=== PATIENT | male | born 1940 | race Caucasian/White ===

== ENCOUNTER → 2021-03-12 13:00 | Outpatient (CLI) | payer MEDICARE, SELFPAY ==
--- NOTE | 2021-03-12 13:03 | DI.RAD.S_ITS ---
PROCEDURE: XR FOOT RT MIN 3V INDICATIONS: Clinical concern for osteo myelitis of distal 1st metarsal, MCP TECHNIQUE: 3 views of the foot were acquired. COMPARISON: [facility], XR FOOT 3+ VIEWS RIGHT, 05/14/2020, 11:05. FINDINGS: Bones: Moderate to prominent hallux valgus deformity is seen, with associated focal degenerative change of the 1st metatarsophalangeal joint. Milder degenerative changes are seen elsewhere. Toe alignment abnormalities are seen. A plantar calcaneal spur is seen. No displaced fractures are seen. Soft tissues: Soft tissue irregularity and soft tissue gas can be seen adjacent to the 1st metatarsophalangeal joint. Distal soft tissue swelling is seen. Calcification is noted of the distal arteries. This degree of calcification is typically seen in patients with a long-standing history of diabetes. Please correlate with a history of such. IMPRESSION: Soft tissue swelling and soft tissue gas can be seen adjacent to the 1st metatarsophalangeal joint, without bella plain film findings of osteomyelitis. If there is strong suspicion for developing osteomyelitis, please consider a dedicated MRI without and with contrast for further evaluation (assuming that there is no contraindication to MRI). Moderate to prominent hallux valgus deformity, with associated degenerative changes. Dictated by: Federico Javier M.D. on 03/12/2021 at 12:24 Approved by: Federico Javier M.D. on 03/12/2021 at 12:26
== END ==
PROVIDERS: Referring Provider Nurse Practitioner; Visit Provider Nurse Practitioner
DX: S91.301A Unspecified open wound, right foot, initial encounter (principal); M79.89 Other specified soft tissue disorders; M20.11 Hallux valgus (acquired), right foot; M77.31 Calcaneal spur, right foot
CPT/HCPCS: 73630; 87070; 87077; 87147; 87186; 87205

== ENCOUNTER → 2021-03-12 13:14 | Outpatient (CLI) | payer MEDICARE, SELFPAY | PROVIDERS: Visit Provider Nurse Practitioner | DX: S91.309A Unspecified open wound, unspecified foot, initial encounter (principal) | CPT/HCPCS: 87070; 87147; 87205 ==

== ENCOUNTER → 2021-03-23 13:33 | Outpatient (CLI) | payer MEDICARE, SELFPAY | PROVIDERS: PCP Nurse Practitioner; Referring Provider Nurse Practitioner; Visit Provider Family Medicine | DX: E11.621 Type 2 diabetes mellitus with foot ulcer (principal); L97.511 Non-pressure chronic ulcer of other part of right foot limited to breakdown of skin; L08.9 Local infection of the skin and subcutaneous tissue, unspecified; M21.611 Bunion of right foot | CPT/HCPCS: 87070; 87075; 87205 ==

== ENCOUNTER → 2021-03-23 15:01 | Outpatient (CLI) | payer MEDICARE, SELFPAY | PROVIDERS: PCP Nurse Practitioner; Referring Provider Podiatrist; Visit Provider Family Medicine | DX: E11.621 Type 2 diabetes mellitus with foot ulcer (principal); L97.511 Non-pressure chronic ulcer of other part of right foot limited to breakdown of skin; L08.9 Local infection of the skin and subcutaneous tissue, unspecified; M21.611 Bunion of right foot | CPT/HCPCS: 11042; 99204; 99214 ==

== ENCOUNTER → 2021-03-30 12:53 | Outpatient (CLI) | payer MEDICARE, SELFPAY | PROVIDERS: PCP Nurse Practitioner; Referring Provider Nurse Practitioner; Visit Provider Family Medicine | DX: E11.621 Type 2 diabetes mellitus with foot ulcer (principal); L97.511 Non-pressure chronic ulcer of other part of right foot limited to breakdown of skin; L08.9 Local infection of the skin and subcutaneous tissue, unspecified; M21.611 Bunion of right foot; S51.001A Unspecified open wound of right elbow, initial encounter | CPT/HCPCS: 87070; 87075; 87205; 97597; 99214 ==

== ENCOUNTER → 2021-04-06 14:26 | Outpatient (CLI) | payer MEDICARE, SELFPAY | PROVIDERS: PCP Nurse Practitioner; Referring Provider Nurse Practitioner; Visit Provider Family Medicine | DX: E11.621 Type 2 diabetes mellitus with foot ulcer (principal); L97.511 Non-pressure chronic ulcer of other part of right foot limited to breakdown of skin; L08.9 Local infection of the skin and subcutaneous tissue, unspecified; S51.001A Unspecified open wound of right elbow, initial encounter; M21.611 Bunion of right foot | CPT/HCPCS: 87070; 87075; 87077; 87147; 87205; 97597; 99213 ==

== ENCOUNTER → 2021-04-13 14:04 | Outpatient (CLI) | payer MEDICARE, SELFPAY | PROVIDERS: PCP Nurse Practitioner; Referring Provider Nurse Practitioner; Visit Provider Family Medicine | DX: E11.621 Type 2 diabetes mellitus with foot ulcer (principal); L97.511 Non-pressure chronic ulcer of other part of right foot limited to breakdown of skin; L08.9 Local infection of the skin and subcutaneous tissue, unspecified; S51.001A Unspecified open wound of right elbow, initial encounter; B95.7 Other staphylococcus as the cause of diseases classified elsewhere; M21.611 Bunion of right foot; L84 Corns and callosities | CPT/HCPCS: 36415; 80048; 85025; 85651; 86140; 97597; 99213 ==

== ENCOUNTER → 2021-04-13 15:34 | Outpatient (CLI) | payer MEDICARE, SELFPAY ==
[2021-04-13 16:08] LABS: Add Manual Diff / Slide Review NO; Basophils Absolute Auto 100 /uL (0-100); Basophils Percent Auto 1.4 % (0-2); Eosinophils Absolute Auto 200 /uL (0-450); Hematocrit 28.4 % (41-53); Hemoglobin 9.6 g/dL (13.5-17.5); Lymphocytes Absolute Auto 900 /uL (1100-4500); Lymphocytes Percent Auto 19.4 % (25-40); Mean Corpuscular HGB Conc 33.8 % (30-36); Mean Corpuscular Hemoglobin 33.3 PG (26-34); Mean Corpuscular Volume 98.8 fL (80-100); Monocytes Absolute Auto 600 /uL (0-900); Monocytes Percent Auto 12.7 % (3-14); Neutrophils Absolute Auto 2900 /uL (1500-7000); Neutrophils Percent Auto 61.5 % (50-75); Platelet Count 119 X10^3/uL (150-400); Red Blood Cell Count 2.88 X10^6/uL (4.5-5.9); Red Cell Distribution Width 14.3 % (11.6-14.8); White Blood Cell Count 4.7 X10^3/uL (4.5-11.0)
[2021-04-13 16:59] LABS: Erythrocyte Sedimentation Rate 62 MM/HR (0-15)
[2021-04-13 17:04] LABS: BUN Creatinine Ratio 36.9 (6-22); Blood Urea Nitrogen 93 mg/dL (9-20); C-Reactive Protein Quant 0.5 mg/dL (<1.0); Carbon Dioxide 31 mmol/L (22-32); Chloride 94 mmol/L (98-107); Estimated Glomerular Filt Rate 24.6 mL/min (>60); Glucose 95 mg/dL (80-110); HEMOLYSIS < 15 (0-50); Potassium 3.6 mmol/L (3.4-5.1); Sodium 137 mmol/L (137-145)
== END ==
PROVIDERS: PCP Nurse Practitioner; Referring Provider Family Medicine; Visit Provider Family Medicine
DX: E11.621 Type 2 diabetes mellitus with foot ulcer (principal); L97.511 Non-pressure chronic ulcer of other part of right foot limited to breakdown of skin; L08.9 Local infection of the skin and subcutaneous tissue, unspecified
CPT/HCPCS: 36415; 80048; 85025; 85651; 86140

== ENCOUNTER → 2021-04-27 14:35 | Outpatient (CLI) | payer MEDICARE, SELFPAY | PROVIDERS: PCP Nurse Practitioner; Referring Provider Nurse Practitioner; Visit Provider Family Medicine | DX: E11.621 Type 2 diabetes mellitus with foot ulcer (principal); L97.511 Non-pressure chronic ulcer of other part of right foot limited to breakdown of skin; M21.611 Bunion of right foot; S51.002A Unspecified open wound of left elbow, initial encounter; D64.9 Anemia, unspecified; D69.6 Thrombocytopenia, unspecified; N18.4 Chronic kidney disease, stage 4 (severe); I50.32 Chronic diastolic (congestive) heart failure | CPT/HCPCS: 97597; 99214 ==

== ENCOUNTER → 2021-05-03 13:12 | Outpatient (CLI) | payer MEDICARE, SELFPAY | PROVIDERS: PCP Nurse Practitioner; Referring Provider Nurse Practitioner; Visit Provider Family Medicine | DX: E11.621 Type 2 diabetes mellitus with foot ulcer (principal); L97.511 Non-pressure chronic ulcer of other part of right foot limited to breakdown of skin; M21.611 Bunion of right foot; S51.002A Unspecified open wound of left elbow, initial encounter; D64.9 Anemia, unspecified; D69.6 Thrombocytopenia, unspecified; N18.4 Chronic kidney disease, stage 4 (severe); I50.32 Chronic diastolic (congestive) heart failure; L08.9 Local infection of the skin and subcutaneous tissue, unspecified; S93.124A Dislocation of metatarsophalangeal joint of right lesser toe(s), initial encounter | CPT/HCPCS: 73630; 87070; 87075; 87205; 97597; 99213 ==

== ENCOUNTER → 2021-05-03 14:49 | Outpatient (CLI) | payer MEDICARE, SELFPAY ==
--- NOTE | 2021-05-03 14:53 | DI.RAD.S_ITS ---
PROCEDURE: XR FOOT RT MIN 3V INDICATIONS: Evaluate for osteomyelitis-rt 1st met head TECHNIQUE: 3 views of the foot were acquired. COMPARISON: [facility] [place], CR, XR FOOT 3+ VIEWS RIGHT, 05/14/2020, 11:05. [facility], CR, XR FOOT RT MIN 3V, 03/12/2021, 13:02. FINDINGS: Bones: No acute fracture. There is bony lucency along the medial margin of the 1st metatarsal head. There is severe hallux valgus alignment and medial bunion. Dorsal dislocation of the 2nd MTP joint. Background osteoarthritic changes redemonstrated. Prominent plantar calcaneal enthesophyte. Soft tissues: No tibiotalar joint effusion. Achilles tendon appears normal. Vascular calcifications indicate atherosclerosis. IMPRESSION: 1. Bony lucency along the medial margin of the 1st metatarsal head which could represent developing osteomyelitis. Recommend clinical correlation and attention on follow-up. 2. Dislocation of the 2nd MTP joint. 3. Diffuse degenerative change again noted. Dictated by: Salvador Day [facility] Interpreted: Mo Wan MD on 05/03/2021 at 15:39 Transcribed by: PATTI on 05/03/2021 at 15:42 Approved by: Mo Wan M.D. on 05/03/2021 at 16:47
== END ==
PROVIDERS: PCP Nurse Practitioner; Referring Provider Family Medicine; Visit Provider Family Medicine
DX: E11.621 Type 2 diabetes mellitus with foot ulcer (principal); S93.124A Dislocation of metatarsophalangeal joint of right lesser toe(s), initial encounter; L97.511 Non-pressure chronic ulcer of other part of right foot limited to breakdown of skin
CPT/HCPCS: 73630

== ENCOUNTER → 2021-05-11 14:44 | Outpatient (CLI) | payer MEDICARE, SELFPAY | PROVIDERS: PCP Nurse Practitioner; Referring Provider Nurse Practitioner; Visit Provider Family Medicine | DX: E11.621 Type 2 diabetes mellitus with foot ulcer (principal); L97.512 Non-pressure chronic ulcer of other part of right foot with fat layer exposed; M21.611 Bunion of right foot; S51.002A Unspecified open wound of left elbow, initial encounter; D64.9 Anemia, unspecified; N18.4 Chronic kidney disease, stage 4 (severe); I50.32 Chronic diastolic (congestive) heart failure; L03.115 Cellulitis of right lower limb; L97.511 Non-pressure chronic ulcer of other part of right foot limited to breakdown of skin | CPT/HCPCS: 36415; 80053; 83036; 84134; 85025; 85651; 86140; 87070; 87075; 87077; 87147; 87186; 87205; 99214; 99215 ==

== ENCOUNTER → 2021-05-11 14:59 | Outpatient (CLI) | payer MEDICARE, SELFPAY ==
[2021-05-11 16:00] LABS: Add Manual Diff / Slide Review NO; Basophils Absolute Auto 100 /uL (0-100); Basophils Percent Auto 0.9 % (0-2); Eosinophils Absolute Auto 200 /uL (0-450); Eosinophils Percent Auto 3.9 % (2-4); Hematocrit 22.5 % (41-53); Hemoglobin 7.6 g/dL (13.5-17.5); Lymphocytes Absolute Auto 700 /uL (1100-4500); Mean Corpuscular HGB Conc 33.6 % (30-36); Mean Corpuscular Hemoglobin 33.4 PG (26-34); Mean Corpuscular Volume 99.4 fL (80-100); Monocytes Absolute Auto 600 /uL (0-900); Monocytes Percent Auto 10.5 % (3-14); Neutrophils Absolute Auto 4400 /uL (1500-7000); Neutrophils Percent Auto 73.7 % (50-75); Platelet Count 183 X10^3/uL (150-400); Red Blood Cell Count 2.27 X10^6/uL (4.5-5.9); Red Cell Distribution Width 15.1 % (11.6-14.8)
[2021-05-11 16:10] LABS: Hemoglobin A1C% w Est Avg Glu 6.1 % (4.0-6.0)
[2021-05-11 16:33] LABS: Erythrocyte Sedimentation Rate 42 MM/HR (0-15)
[2021-05-11 16:58] LABS: Alanine Aminotransferase 21 IU/L (<50); Albumin 3.9 g/dL (3.5-5.0); Albumin Globulin Ratio 1.3 (1.0-2.8); Alkaline Phosphatase 126 U/L (38-126); Aspartate Aminotransferase 37 IU/L (17-59); BUN Creatinine Ratio 30.1 (6-22); Bilirubin Total 0.8 mg/dL (0.2-1.3); Blood Urea Nitrogen 86 mg/dL (9-20); Calcium 8.8 mg/dL (8.4-10.2); Carbon Dioxide 26 mmol/L (22-32); Chloride 100 mmol/L (98-107); Estimated Glomerular Filt Rate 21.3 mL/min (>60); Glucose 72 mg/dL (80-110); HEMOLYSIS < 15 (0-50); Potassium 4.4 mmol/L (3.4-5.1); Sodium 138 mmol/L (137-145); Total Protein 6.9 g/dL (6.3-8.2)
[2021-05-11 17:03] LABS: Prealbumin 20.1 mg/dL (17.6-36.0)
== END ==
PROVIDERS: PCP Nurse Practitioner; Referring Provider Family Medicine; Visit Provider Family Medicine
DX: E11.621 Type 2 diabetes mellitus with foot ulcer (principal); L97.511 Non-pressure chronic ulcer of other part of right foot limited to breakdown of skin
CPT/HCPCS: 36415; 80053; 83036; 84134; 85025; 85651; 86140

== ENCOUNTER → 2021-05-19 13:06 | Outpatient (CLI) | payer MEDICARE, SELFPAY | PROVIDERS: PCP Nurse Practitioner; Referring Provider Nurse Practitioner; Visit Provider Family Medicine | DX: E11.621 Type 2 diabetes mellitus with foot ulcer (principal); L97.512 Non-pressure chronic ulcer of other part of right foot with fat layer exposed; M21.611 Bunion of right foot; D64.9 Anemia, unspecified; N18.4 Chronic kidney disease, stage 4 (severe); I50.32 Chronic diastolic (congestive) heart failure; B95.61 Methicillin susceptible Staphylococcus aureus infection as the cause of diseases classified elsewhere | CPT/HCPCS: 15275; 99214; Q4195 ==

== ENCOUNTER → 2021-05-24 13:49 | Outpatient (CLI) | payer MEDICARE, SELFPAY | PROVIDERS: PCP Nurse Practitioner; Referring Provider Nurse Practitioner; Visit Provider Family Medicine | DX: E11.621 Type 2 diabetes mellitus with foot ulcer (principal); L97.522 Non-pressure chronic ulcer of other part of left foot with fat layer exposed; E11.40 Type 2 diabetes mellitus with diabetic neuropathy, unspecified; L08.9 Local infection of the skin and subcutaneous tissue, unspecified; S93.124D Dislocation of metatarsophalangeal joint of right lesser toe(s), subsequent encounter; M20.11 Hallux valgus (acquired), right foot; M20.5X1 Other deformities of toe(s) (acquired), right foot; M19.071 Primary osteoarthritis, right ankle and foot; M77.31 Calcaneal spur, right foot | CPT/HCPCS: 73630; 99214 ==

== ENCOUNTER → 2021-05-24 15:22 | Outpatient (CLI) | payer MEDICARE, SELFPAY ==
--- NOTE | 2021-05-24 15:26 | DI.RAD.S_ITS ---
PROCEDURE: XR FOOT RT MIN 3V INDICATIONS: EVALUATE RT 1ST MTPJ TECHNIQUE: 3 views of the foot were acquired. COMPARISON: [facility], , XR FOOT RT MIN 3V, 05/03/2021, 14:55. FINDINGS: Bones: Lucency involving the medial margin of the 1st metatarsal head is stable compared to May 03, 2021. Dorsal dislocation of the 2nd MTP joint is stable. Hallux valgus and metatarsus primus varus deformities are stable. No fractures or dislocations. No suspicious bony lesions. Midfoot and tibiotalar osteoarthritis. Calcaneal bone spur. Soft tissues: No tibiotalar joint effusion. Achilles tendon appears normal. IMPRESSION: Stable examination compared to May 03, 2021. Lucency in the medial margin of the head of the 1st metatarsal is stable in appearance. Dictated by: Juanita Germain MD, PhD on 05/24/2021 at 16:51 Approved by: Juanita Germain MD, PhD on 05/24/2021 at 16:53
== END ==
PROVIDERS: PCP Family Medicine; Referring Provider Family Medicine; Visit Provider Family Medicine
DX: E11.621 Type 2 diabetes mellitus with foot ulcer (principal); S93.124D Dislocation of metatarsophalangeal joint of right lesser toe(s), subsequent encounter; M20.11 Hallux valgus (acquired), right foot; M20.5X1 Other deformities of toe(s) (acquired), right foot; M19.071 Primary osteoarthritis, right ankle and foot; M77.31 Calcaneal spur, right foot
CPT/HCPCS: 73630

== ENCOUNTER → 2021-06-07 13:45 | Outpatient (CLI) | payer MEDICARE, SELFPAY | PROVIDERS: PCP Family Medicine; Referring Provider Family Medicine; Visit Provider Family Medicine | DX: N18.4 Chronic kidney disease, stage 4 (severe) (principal); E11.621 Type 2 diabetes mellitus with foot ulcer; L97.512 Non-pressure chronic ulcer of other part of right foot with fat layer exposed; M21.611 Bunion of right foot; D64.9 Anemia, unspecified; I50.32 Chronic diastolic (congestive) heart failure; L08.9 Local infection of the skin and subcutaneous tissue, unspecified; R94.4 Abnormal results of kidney function studies; E11.40 Type 2 diabetes mellitus with diabetic neuropathy, unspecified | CPT/HCPCS: 36415; 80053; 85025; 85651; 86140; 99214 ==

== ENCOUNTER → 2021-06-07 14:59 | Outpatient (CLI) | payer MEDICARE, SELFPAY ==
[2021-06-07 15:39] LABS: Add Manual Diff / Slide Review NO; Basophils Absolute Auto 100 /uL (0-100); Eosinophils Absolute Auto 200 /uL (0-450); Eosinophils Percent Auto 3.3 % (2-4); Hematocrit 25.8 % (41-53); Hemoglobin 8.6 g/dL (13.5-17.5); Lymphocytes Absolute Auto 1000 /uL (1100-4500); Lymphocytes Percent Auto 18.6 % (25-40); Mean Corpuscular HGB Conc 33.5 % (30-36); Mean Corpuscular Hemoglobin 33.3 PG (26-34); Mean Corpuscular Volume 99.4 fL (80-100); Monocytes Absolute Auto 700 /uL (0-900); Monocytes Percent Auto 13.5 % (3-14); Neutrophils Absolute Auto 3500 /uL (1500-7000); Neutrophils Percent Auto 63.6 % (50-75); Platelet Count 129 X10^3/uL (150-400); Red Cell Distribution Width 14.8 % (11.6-14.8); White Blood Cell Count 5.5 X10^3/uL (4.5-11.0)
[2021-06-07 16:18] LABS: Erythrocyte Sedimentation Rate 81 MM/HR (0-15)
[2021-06-07 16:22] LABS: Alanine Aminotransferase 22 IU/L (<50); Albumin 4.4 g/dL (3.5-5.0); Albumin Globulin Ratio 1.2 (1.0-2.8); Alkaline Phosphatase 95 U/L (38-126); Aspartate Aminotransferase 45 IU/L (17-59); BUN Creatinine Ratio 37.7 (6-22); Bilirubin Total 1.1 mg/dL (0.2-1.3); C-Reactive Protein Quant < 0.5 mg/dL (<1.0); Calcium 9.9 mg/dL (8.4-10.2); Carbon Dioxide 31 mmol/L (22-32); Chloride 101 mmol/L (98-107); Estimated Glomerular Filt Rate 21.4 mL/min (>60); Globulin 3.7 g/dL (1.7-4.1); Glucose 63 mg/dL (80-110); HEMOLYSIS < 15 (0-50); Sodium 142 mmol/L (137-145); Total Protein 8.1 g/dL (6.3-8.2)
[2021-06-07 18:41] LABS: Blood Urea Nitrogen 107 mg/dL (9-20)
== END ==
PROVIDERS: PCP Family Medicine; Referring Provider Family Medicine; Visit Provider Family Medicine
DX: N18.4 Chronic kidney disease, stage 4 (severe) (principal); E11.621 Type 2 diabetes mellitus with foot ulcer
CPT/HCPCS: 36415; 80053; 85025; 85651; 86140

== ENCOUNTER 2021-06-13 14:07 | Emergency (ER) | payer MEDICARE, SELFPAY ==
[2021-06-13 14:13] VITALS: BP 180/93; PULSE 79; RESP 18; TEMP 36.4; O2SAT 100
--- NOTE | 2021-06-13 15:08 | DI.CT.S_ITS ---
PROCEDURE: CT HEAD/BRAIN WO CON INDICATIONS: head injury, fell in parking lot TECHNIQUE: Noncontrast 4.5 mm thick angled axial sections acquired from the foramen magnum to the vertex, with coronal and sagittal reformats. For radiation dose reduction, the following was used: automated exposure control, adjustment of mA and/or kV according to patient size. COMPARISON: None. FINDINGS: Image quality: Excellent. CSF spaces: Basal cisterns are patent. No extra-axial fluid collections. Ventricles are normal in size and shape. Brain: No midline shift. No intracranial masses or hemorrhage. Berg-white matter interface is normal. Skull and face: Calvarium and visualized facial bones are intact, without suspicious lesions. Sinuses: Visualized sinuses and mastoids are clear. IMPRESSION: No acute intracranial finding. Dictated by: Krish León M.D. on 06/13/2021 at 14:27 Approved by: Krish León M.D. on 06/13/2021 at 14:33
--- NOTE | 2021-06-13 15:11 | ED_ITS ---
HPI - Fall <AVANI Escobedo - Last Filed: 06/13/21 16:04> General Chief Complaint: Fall Stated Complaint: Fall in parking lot Time Seen by Provider: 06/13/21 15:08 Source: patient and other Mode of arrival: Ambulatory History of Present Illness HPI Narrative: 80-year-old man presents to the emergency department after tripping on some raised asphalt in the parking lot. Patient has abrasions above his right eye, bilateral hands, right cheek, right knee. Patient denies any LOC, nausea vomiting, shortness of breath, chest pain, syncope, dizziness, lightheadedness. He endorses right lower extremity swelling at baseline for a wound that is on his foot. He was going to get some lunch while his went to an MRI appointment, so he endorses being hungry because he did not make it that far. Patient is fully alert, GCS is 15, he was assisted to the emergency department just after his fall. Related Data Previous Rx's Medication Instructions Recorded gentamicin 0.1 % topical ointment 1 applic TOPICAL TID PRN 7 Days 06/13/21 #15 g Allergies Allergy/AdvReac Type Severity Reaction Status Date / Time amlodipine [From Norvasc] Allergy Severe edema Verified 06/13/21 15:51 minoxidil Allergy Severe severe Verified 06/13/21 15:51 edema nifedipine Allergy Intermediate edema Verified 06/13/21 15:51 aliskiren [From Tekturna] AdvReac Intermediate diarrhea Verified 06/13/21 15:51 doxycycline AdvReac Intermediate sunburn Verified 06/13/21 15:51 Review of Systems <AVANI Escobedo - Last Filed: 06/13/21 16:04> Review of Systems Narrative: General: denies fever, chills Head/Neck: denies headache, neck pain Eyes: denies visual changes, eye pain Cardio: denies chest pain, palpitations Respiratory: denies shortness of breath, cough GI: denies abdominal pain, nausea, vomiting, or diarrhea : denies dysuria, hematuria MSK: denies joint pain, muscle weakness, denies back pain Skin: denies rash, itching, patient has multiple abrasions which are breathing lately Neuro: denies numbness, tingling Patient History <AVANI Escobedo - Last Filed: 06/13/21 16:04> Social History Smoking Status: Former smoker Smoking Status: Former smoker Exam <AVANI Escobedo - Last Filed: 06/13/21 16:04> Narrative Exam Narrative: Independently reviewed vitals signs and nursing notes. General: Awake, alert, nontoxic, no cardiorespiratory distress Head/Neck: Atraumatic, neck full range of motion Eyes: EOMI, conjunctiva normal, no pain with eye movements, no scleral injection Nose: nares patent, no rhinorrhea no epistaxis Mouth/Throat: moist mucus membranes, posterior pharynx normal, no oral lesions Cardio: Regular rate and rhythm, no peripheral edema Respiratory: respirations unlabored without wheezing, stridor, or rales. No retractions. GI: Abdomen soft, nontender MSK: Moves all extremities, neurovascularly intact, no deformities, full range of motion to all joints without significant pain Skin: Normal capillary refill, no rash, patient with to inch by 1 in abrasion above his right eyebrow, bilateral palmar abrasions, right knee abrasion, no lacerations, contusions present without hematoma Neuro: Normal speech and cognition, normal gait, no focal neuro deficits, GCS is 15, cranial nerves 2-12 grossly intact Patient denies need for pain medication at this time Initial Vital Signs Initial Vital Signs: Vital Signs Temperature 97.5 F L 06/13/21 14:13 Pulse Rate 79 06/13/21 14:13 Respiratory Rate 18 06/13/21 14:13 Blood Pressure 180/93 H 06/13/21 14:13 Pulse Oximetry 100 06/13/21 14:13 <Sejal Rob DO - Last Filed: 06/16/21 13:15> Initial Vital Signs Initial Vital Signs: Vital Signs Temperature 97.5 F L 06/13/21 14:13 Pulse Rate 79 06/13/21 14:13 Respiratory Rate 18 06/13/21 14:13 Blood Pressure 180/93 H 06/13/21 14:13 Pulse Oximetry 100 06/13/21 14:13 Scores <AVANI Escobedo - Last Filed: 06/13/21 16:04> [place] CT Head Rule Age <16 years old: No Patient on blood thinners: No Seizure after injury: No Exclusion: Patient NOT Excluded, Proceed to next steps Suspected open or depressed skull fracture: No Any sign of basilar skull fracture (hemotympanum, raccoon eyes, Ambrosio's sign, CSF jackie-/rhinorrhea): No Two or more episodes of vomiting: No Age greater or equal to 65 years: Yes Retrograde amnesia to the event greater or equal to 30 min: No Dangerous Mechanism (pedestrian vs. mv, occupant ejected from mv, fall from >3 ft or > 5 stairs): No Nexus Score for C-Spine Focal Neurologic deficit present: No Midline spinal tenderness present: No Altered level of conciousness present: No Intoxication present: No Distracting Injury Present: No Nexus Criteria for C-spine: 0 <Sejal Rob DO - Last Filed: 06/16/21 13:15> [place] CT Head Rule Exclusion: Patient NOT Excluded, Proceed to next steps Nexus Score for C-Spine Nexus Criteria for C-spine: 0 Course <AVANI Escobedo - Last Filed: 06/13/21 16:04> Orders Ordered: Discontinued Medications Acetaminophen (Acetaminophen 325 Mg Tablet) 975 mg PO NOW ONE Stop: 06/13/21 15:35 Last Admin: 06/13/21 15:50 Dose: 975 mg Documented by: SHAJI Bacitracin (Bacitracin Oint 0.9 Gm Pckt) 1 applic TOP NOW ONE Stop: 06/13/21 15:52 Last Admin: 06/13/21 15:59 Dose: 1 applic Documented by: SHAJI Gentamicin Sulfate (Gentamicin 0.1% Oint 30 Gm) 1 applic TOP NOW ONE Stop: 06/13/21 15:52 Last Admin: 06/13/21 16:00 Dose: Not Given Documented by: SHAJI Lidocaine/Prilocaine (Lidocaine/Prilocaine 5 Gm) 5 gm TOP NOW ONE Stop: 06/13/21 15:11 Last Admin: 06/13/21 16:00 Dose: Not Given Documented by: SHAJI Vital Signs Vital signs: Vital Signs - 8 hr 06/13/21 14:13 Temperature 97.5 F L Pulse Rate 79 Respiratory Rate 18 Blood Pressure 180/93 H Pulse Oximetry 100 <DO Paco Griggs Last Filed: 06/16/21 13:15> Orders Ordered: Discontinued Medications Acetaminophen (Acetaminophen 325 Mg Tablet) 975 mg PO NOW ONE Stop: 06/13/21 15:35 Last Admin: 06/13/21 15:50 Dose: 975 mg Documented by: SHAJI Bacitracin (Bacitracin Oint 0.9 Gm Pckt) 1 applic TOP NOW ONE Stop: 06/13/21 15:52 Last Admin: 06/13/21 15:59 Dose: 1 applic Documented by: SHAIJ Gentamicin Sulfate (Gentamicin 0.1% Oint 30 Gm) 1 applic TOP NOW ONE Stop: 06/13/21 15:52 Last Admin: 06/13/21 16:00 Dose: Not Given Documented by: SHAJI Lidocaine/Prilocaine (Lidocaine/Prilocaine 5 Gm) 5 gm TOP NOW ONE Stop: 06/13/21 15:11 Last Admin: 06/13/21 16:00 Dose: Not Given Documented by: SHAJI Vital Signs Vital signs: Vital Signs - 8 hr 06/13/21 14:13 Temperature 97.5 F L Pulse Rate 79 Respiratory Rate 18 Blood Pressure 180/93 H Pulse Oximetry 100 MDM - Fall <AVANI Escobedo - Last Filed: 06/13/21 16:04> Imaging Data CT scan - head: Radiologist's Impression: Procedure: CT head/brain wo con Ordering Provider: Della Ruiz PROCEDURE:? CT HEAD/BRAIN WO CON ? INDICATIONS:? head injury, fell in parking lot ? TECHNIQUE:? Noncontrast 4.5 mm thick angled axial sections acquired from the foramen magnum to the vertex, with coronal and sagittal reformats.? For radiation dose reduction, the following was used:? automated exposure control, adjustment of mA and/or kV according to patient size.? ? COMPARISON:? None. ? FINDINGS:? Image quality:? Excellent.? ? CSF spaces:? Basal cisterns are patent.? No extra-axial fluid collections.? Ventricles are normal in size and shape.? ? Brain:? No midline shift.? No intracranial masses or hemorrhage.? Berg-white matter interface is normal.? ? Skull and face:? Calvarium and visualized facial bones are intact, without suspicious lesions.? ? Sinuses:? Visualized sinuses and mastoids are clear.? ? IMPRESSION:? No acute intracranial finding. ? ? Dictated by: Krish León M.D. on 06/13/2021 at 14:27 ? ? Approved by: Krish León M.D. on 06/13/2021 at 14:33 ? [facility] Narrative Medical decision making narrative: 80-year-old male presents to the emergency department after falling in the parking lot tripping on asphalt and injuring his right face, palmar aspects of bilateral hands. Patient's exam is reassuring, no focal neurologic deficits, no C-spine tenderness to palpation, no palpable skull fracture or significant tenderness, CT noncontrast obtained due to patient age, and mechanism although patient denied any vision changes, lightheadedness or dizziness, syncope, nausea vomiting. Head CT without any intracranial masses or hemorrhage, no midline shift, visualized sinuses and mastoids are clear, without any acute intracranial finding. Patient's exam is reassuring without any mental status changes, abnormal speech, or other. I spoke with digital imaging who was to complete part 1 of 2 scans today, patient missed his appointment time due to his fall. Patient requests to follow-up later as these are easy to reschedule, this was fine with the apartment. I spoke with Marilu, patient's wound clinic provider who recommends gentamicin ointment to patient's skin tears and multiple abrasions. Today these were cleaned by the medical technologist, bacitracin was applied in the emergency department with nonstick dressings, he was prescribed gentamicin ointment to chart picker tomorrow and use until his wounds heal. She will follow-up with him at his scheduled appointment on , and we will call him before then to see how he is doing. Differential includes Subarachnoid hemorrhage, but unlikely as patient denies sudden onset of pain, not worst of life, or neck pain. Other serious diagnoses considered unlikely given lack of red flag findings such as sudden onset, increasing frequency, immunocompromise, systemic signs (fever, chills, stiff neck, or rash), focal neurologic findings, blood thinners, etc. Patient is appropriate and amenable to discharge home. Vital signs are stable on repeat examination is unremarkable. Patient has been informed of results. Patient has been given strict return to ER precautions for any new or worsening symptoms. Patient understands to follow up closely with outpatient providers as instructed. Patient understands plan and agrees to discharge home. All questio ns and concerns answered at this time. Discharge Plan Departure Patient Disposition: Home Clinical Impression: Fall from ground level, Abrasion head, Skin tear of elbow without complication Instructions: How to Prevent Falls Activity Restrictions/Additional Instructions: *You have been diagnosed with a fall with multiple abrasions. Please change your dressings as often as necessary, or when they are saturated. Please change them at least once a day, you may use Band-Aids. Please chart picker gentamicin ointment from your pharmacy at [facility], use this for your skin tears and for the open areas to help prevent infection. If you have any questions about your wounds, Marilu said she would be happy to help. Please return to the emergency department if you have any new or worsening symptoms, chest pain, nausea vomiting, or vision changes. I am sorry that this happened, I hope you feel better soon, please be careful. *What to do: *Please continue to take your regular medications as directed. [ x] New medication prescriptions sent to your pharmacy: [[facility] ] [ ] New medication written as a paper prescription [ ] No new medications given *Please follow up with your primary care provider in 2-3 days, call for an appointment. Let them know you were seen in the Emergency Department and that we ask that you be seen in follow up. We will electronically transmit a record of today's note if your PCP is in our system *If you do not have a primary care provider please contact the [facility] Resource line at [phone]. They will ask some questions about your medical history and help get you set up with a doctor in the community. *Return to Emergency Department if you should have any new, worsening or concerning symptoms, such as [fever greater than 101F, chills, worsening pain, persistent vomiting or other bothersome symptoms] Prescriptions: New gentamicin 0.1 % ointment 1 applic topical TID PRN (Reason: skin tear, abrasions) 7 Days Qty: 15 0RF Referrals: Gabriel Reyes MD [Primary Care Provider] - <Sejal Rob DO - Last Filed: 06/16/21 13:15> Cosign ED Attending Mehdiature Attestation: I was immediately available in the department for consultation. Documentation has been reviewed.
[2021-06-13] MEDS: ACETAMINOPHEN 325 MG TABLET 975 MG PO (15:50)
[2021-06-13] MEDS: BACITRACIN OINT 0.9 GM PCKT 1 APPLIC TOP (15:59)
[2021-06-13 16:13] VITALS: BP 180/80; PULSE 80; RESP 16; O2SAT 99
== END 2021-06-13 16:14 | disposition home or self-care (01) ==
PROVIDERS: Emergency Provider Nurse Practitioner Critical Care Medicine; PCP Family Medicine
DX: S00.81XA Abrasion of other part of head, initial encounter (principal); S60.512A Abrasion of left hand, initial encounter; S60.511A Abrasion of right hand, initial encounter; S80.211A Abrasion, right knee, initial encounter; S50.319A Abrasion of unspecified elbow, initial encounter; W01.10XA Fall on same level from slipping, tripping and stumbling with subsequent striking against unspecified object, initial encounter
CPT/HCPCS: 70450; 99284

== ENCOUNTER → 2021-06-21 16:10 | Outpatient (CLI) | payer MEDICARE, SELFPAY | PROVIDERS: PCP Family Medicine; Referring Provider Family Medicine; Visit Provider Family Medicine | DX: E11.621 Type 2 diabetes mellitus with foot ulcer (principal); L97.512 Non-pressure chronic ulcer of other part of right foot with fat layer exposed; L08.9 Local infection of the skin and subcutaneous tissue, unspecified; M21.611 Bunion of right foot; R26.89 Other abnormalities of gait and mobility; E11.40 Type 2 diabetes mellitus with diabetic neuropathy, unspecified; E11.22 Type 2 diabetes mellitus with diabetic chronic kidney disease; I12.9 Hypertensive chronic kidney disease with stage 1 through stage 4 chronic kidney disease, or unspecified chronic kidney disease; N18.4 Chronic kidney disease, stage 4 (severe); D64.9 Anemia, unspecified; I50.32 Chronic diastolic (congestive) heart failure; I48.91 Unspecified atrial fibrillation; Z95.0 Presence of cardiac pacemaker; Z79.4 Long term (current) use of insulin | CPT/HCPCS: 99213 ==

== ENCOUNTER → 2021-06-23 15:12 | Outpatient (CLI) | payer MEDICARE, SELFPAY ==
--- NOTE | 2021-06-23 15:14 | DI.NM.S_ITS ---
PROCEDURE: NM BONE 3 PHASE RADIOPHARMACEUTICAL: 23 mCi Tc-99m MDP IV. INDICATIONS: Methicillin susceptible Staphylococcus aureus infe TECHNIQUE: Multiple bone scintigrams were obtained after intravenous injection of Tc-99m MDP, including flow, blood pool, and delayed images centered to the region of interest. COMPARISON: [facility], CR, XR FOOT RT MIN 3V, 05/24/2021, 15:34. FINDINGS: There is mild appearance of increased blood flow to the 1st digit near MTP joint. Increased flow is also noted is also noted the plantar surface the right calcaneus. Slight appearance of increased blood flow is noted within the midfoot bilaterally. There is similar appearance of increased uptake within blood pool images. Delayed images demonstrate increased uptake within the previously described regions. IMPRESSION: 1. Increased blood flow, pool and delayed uptake at the right 1st digit near the MTP joint, correlating to area of concern for osteomyelitis. While triple phase positive bone scan is not specific for osteomyelitis, it is reflective bone turnover which can be seen with osteomyelitis and corresponds to x-ray findings. 2. Areas of increased uptake within the left mid foot and right calcaneus are also present. It is noted that degenerative changes are present within the midfoot on x-ray. Findings can be related to entities of increased bone turnover. While no erosions are identified on x-ray to suggest osteomyelitis, other etiologies such as neuropathy, enthesiopathies and reflex sympathetic dystrophy should be considered. Dictated by: Glenda Peñaloza M.D. on 06/24/2021 at 16:58 Transcribed by: TRU on 06/24/2021 at 17:05 Approved by: Glenda Peñaloza M.D. on 07/01/2021 at 1:22
== END ==
PROVIDERS: PCP Family Medicine; Referring Provider Family Medicine; Visit Provider Family Medicine
DX: A49.01 Methicillin susceptible Staphylococcus aureus infection, unspecified site (principal)
CPT/HCPCS: 78315; A9503

== ENCOUNTER → 2021-07-05 14:11 | Outpatient (CLI) | payer MEDICARE, SELFPAY | PROVIDERS: PCP Family Medicine; Referring Provider Family Medicine; Visit Provider Family Medicine | DX: E11.621 Type 2 diabetes mellitus with foot ulcer (principal); L97.512 Non-pressure chronic ulcer of other part of right foot with fat layer exposed; L08.9 Local infection of the skin and subcutaneous tissue, unspecified; E11.69 Type 2 diabetes mellitus with other specified complication; M86.171 Other acute osteomyelitis, right ankle and foot; M21.611 Bunion of right foot; R26.89 Other abnormalities of gait and mobility; E11.40 Type 2 diabetes mellitus with diabetic neuropathy, unspecified; E11.22 Type 2 diabetes mellitus with diabetic chronic kidney disease; I12.9 Hypertensive chronic kidney disease with stage 1 through stage 4 chronic kidney disease, or unspecified chronic kidney disease; N18.4 Chronic kidney disease, stage 4 (severe); D64.9 Anemia, unspecified; I50.32 Chronic diastolic (congestive) heart failure; I48.91 Unspecified atrial fibrillation; Z95.0 Presence of cardiac pacemaker; Z79.4 Long term (current) use of insulin | CPT/HCPCS: 99213 ==

== ENCOUNTER → 2021-07-12 13:39 | Outpatient (CLI) | payer MEDICARE, SELFPAY | PROVIDERS: PCP Family Medicine; Referring Provider Family Medicine; Visit Provider Family Medicine | DX: E11.621 Type 2 diabetes mellitus with foot ulcer (principal); L97.512 Non-pressure chronic ulcer of other part of right foot with fat layer exposed; M21.611 Bunion of right foot; E11.69 Type 2 diabetes mellitus with other specified complication; M86.171 Other acute osteomyelitis, right ankle and foot; E11.40 Type 2 diabetes mellitus with diabetic neuropathy, unspecified; E11.22 Type 2 diabetes mellitus with diabetic chronic kidney disease; I12.9 Hypertensive chronic kidney disease with stage 1 through stage 4 chronic kidney disease, or unspecified chronic kidney disease; N18.4 Chronic kidney disease, stage 4 (severe); I11.0 Hypertensive heart disease with heart failure; I50.32 Chronic diastolic (congestive) heart failure; I48.91 Unspecified atrial fibrillation; D64.9 Anemia, unspecified; Z79.4 Long term (current) use of insulin; Z95.0 Presence of cardiac pacemaker | CPT/HCPCS: 11042; 99214 ==

== ENCOUNTER → 2021-08-22 11:27 | Outpatient (CLI) | payer MEDICARE, SELFPAY | PROVIDERS: PCP Family Medicine; Referring Provider Family Medicine; Visit Provider Family Medicine | DX: E11.621 Type 2 diabetes mellitus with foot ulcer (principal); L97.512 Non-pressure chronic ulcer of other part of right foot with fat layer exposed; S51.001A Unspecified open wound of right elbow, initial encounter; E11.69 Type 2 diabetes mellitus with other specified complication; M86.171 Other acute osteomyelitis, right ankle and foot; R60.0 Localized edema; E11.40 Type 2 diabetes mellitus with diabetic neuropathy, unspecified; M21.611 Bunion of right foot; R26.81 Unsteadiness on feet; E11.22 Type 2 diabetes mellitus with diabetic chronic kidney disease; I13.0 Hypertensive heart and chronic kidney disease with heart failure and stage 1 through stage 4 chronic kidney disease, or unspecified chronic kidney disease; N18.4 Chronic kidney disease, stage 4 (severe); D64.9 Anemia, unspecified; I48.91 Unspecified atrial fibrillation; Z95.0 Presence of cardiac pacemaker; Z79.4 Long term (current) use of insulin | CPT/HCPCS: 11042; 87070; 87077; 87147; 87186; 87205; 99213; 99214 ==

== ENCOUNTER → 2021-08-29 12:02 | Outpatient (CLI) | payer MEDICARE, SELFPAY | PROVIDERS: PCP Family Medicine; Referring Provider Family Medicine; Visit Provider Family Medicine | DX: E11.621 Type 2 diabetes mellitus with foot ulcer (principal); L97.512 Non-pressure chronic ulcer of other part of right foot with fat layer exposed; M21.611 Bunion of right foot; B95.7 Other staphylococcus as the cause of diseases classified elsewhere; E11.69 Type 2 diabetes mellitus with other specified complication; M86.671 Other chronic osteomyelitis, right ankle and foot; E11.40 Type 2 diabetes mellitus with diabetic neuropathy, unspecified; S51.001A Unspecified open wound of right elbow, initial encounter; R26.81 Unsteadiness on feet; E11.22 Type 2 diabetes mellitus with diabetic chronic kidney disease; I13.0 Hypertensive heart and chronic kidney disease with heart failure and stage 1 through stage 4 chronic kidney disease, or unspecified chronic kidney disease; N18.4 Chronic kidney disease, stage 4 (severe); I50.32 Chronic diastolic (congestive) heart failure; D64.9 Anemia, unspecified; I48.91 Unspecified atrial fibrillation; Z95.0 Presence of cardiac pacemaker; Z79.4 Long term (current) use of insulin | CPT/HCPCS: 11042; 99213; 99214 ==

== ENCOUNTER → 2021-09-19 11:21 | Outpatient (CLI) | payer MEDICARE, SELFPAY | PROVIDERS: PCP Family Medicine; Referring Provider Family Medicine; Visit Provider Family Medicine | DX: E11.621 Type 2 diabetes mellitus with foot ulcer (principal); L97.512 Non-pressure chronic ulcer of other part of right foot with fat layer exposed; M21.611 Bunion of right foot; E11.69 Type 2 diabetes mellitus with other specified complication; M86.671 Other chronic osteomyelitis, right ankle and foot; R60.0 Localized edema; E11.649 Type 2 diabetes mellitus with hypoglycemia without coma; E11.40 Type 2 diabetes mellitus with diabetic neuropathy, unspecified; E11.22 Type 2 diabetes mellitus with diabetic chronic kidney disease; I13.0 Hypertensive heart and chronic kidney disease with heart failure and stage 1 through stage 4 chronic kidney disease, or unspecified chronic kidney disease; N18.4 Chronic kidney disease, stage 4 (severe); I50.32 Chronic diastolic (congestive) heart failure; D64.9 Anemia, unspecified; I48.91 Unspecified atrial fibrillation; R26.89 Other abnormalities of gait and mobility; Z95.0 Presence of cardiac pacemaker; Z79.4 Long term (current) use of insulin | CPT/HCPCS: 11042; 99213; 99214 ==

== ENCOUNTER → 2021-09-21 13:52 | Outpatient (CLI) | payer MEDICARE, SELFPAY ==
[2021-09-21 14:59] LABS: COVID19 -Nasal RAPID Negative (Negative)
== END ==
PROVIDERS: PCP Family Medicine; Visit Provider Family Medicine Sleep Medicine
DX: Z20.822 Contact with and (suspected) exposure to COVID-19 (principal)
CPT/HCPCS: 87635; C9803

== ENCOUNTER 2021-09-23 07:36 | Day surgery (SDC) | payer MEDICARE, SELFPAY ==
[2021-09-22 07:07] VITALS: BMI 27.0
[2021-09-23] VITALS (8 sets, daily range): BP systolic 132–163; BP diastolic 74–87; PULSE 60–77; RESP 12–18; TEMP 36.1–36.7; O2SAT 94–100; BMI 27.0
[2021-09-23] MEDS: GABAPENTIN 300 MG CAPSULE PO (08:13)
[2021-09-23] MEDS: ACETAMINOPHEN 325 MG TABLET 975 MG PO (08:13)
[2021-09-23] MEDS: VANCOMYCIN 1,000 MG/200 ML PIGGYBACK 200 MG IV (08:13)
[2021-09-23] MEDS: LACTATED RINGERS 1,000 ML 42 ML IV (08:16)
--- NOTE | 2021-09-23 09:33 | PM.PREOP ---
Pre-operative Note COVID-19 COVID-19 status: Negative Interval Note History & Physical reviewed/Exam performed by Physician: Yes Changes to H&P: No
--- NOTE | 2021-09-23 10:33 | SUR.OPER ---
Supine on padded OR bed, head on pillow, arms secured on padded arm boards at <90 degrees abduction, legs uncrossed, safety belt at thigh, tape over blanket over left lower leg. Folded blankets under left leg. Gel roll under right hip.
[2021-09-23] MEDS: BUPIVACAINE 0.25% (PF) VIAL 30 ML INJ (11:01)
[2021-09-23] MEDS: VANCOMYCIN 1,000 MG VIAL 1000 MG TOP (11:02)
--- NOTE | 2021-09-23 12:16 | P.OP_ITS ---
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 including resection of head of 1st metatarsal bone right and excision proximal and the proximal phalanx right great toe with pinning CPT code 66616 Debridement plantar ulceration right great toe with sesamoidectomy of great toe CPT code 52596-80 Same procedure as scheduled: Yes Indications: Patient is an 81-year-old male a right neuropathic foot ulceration osteomyelitis and severe hallux valgus deformity.? He has persistent ulceration and infection despite exhaustive wound care and antibiotics.? Due to his severe deformity is at high risk for recurrence and worsening infection and ultimate requirements for amputation.? He has been indicated for a resection arthroplasty type procedure within it attempted deformity correction and fusion with pinning, sesamoidectomy and plantar ulcer debridement.? We discussed risk for recurrence, worsening, persistence of infection need for remove of pins early and recurrence of deformity and ultimate requirements for amputation. The risks and benefits of the procedure have been discussed with the patient even opportunity to ask questions.? The risks of surgery include but are not limited to infection, malunion, nonunion, persistence of pain, damage to nerves and blood vessels, posttraumatic arthritis, DVT, PE, cardiopulmonary complications and .? The patient expressed a thorough understanding of the risks and benefits of surgery and has elected to proceed.? Consent was signed in the office.? 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 Postoperatively he would be in a Darco offloading shoe and heel weight-bearing for a 1 stage resection arthroplasty and pin stabilization of the 1st metatarsophalangeal joint for a chronic plantar ulcer with osteomyelitis and sesamoid excision.? We also discussed possible Achilles lengthening based on intraoperative examination Surgeon: Lana Dueñas Click Yes if Unassisted: Yes Anesthesia Type: General and Local Operative Notes Findings: Severe hallux valgus deformity with plantar medial ulceration probing to bone Exam under anesthesia of ankle range of motion with the knee extended demonstrated a to 10? of dorsiflexion Closure Type: primary Specimen(s): other (1st metatarsal bone for Gram stain and culture) Prosthetic devices, grafts, tissues, transplants, or devices: 062 K wire x 2 Estimated Blood Loss (mL): 20 Blood products transfused: none Tourniquet time (min): 53 Procedure in detail: Patient was seen in the preoperative area the site of surgery marked informed consent confirmed.? He was brought back to the operating room by the anesthesia team positioned supine on operative table.? All bony prominences well padded.? A nonsterile thigh tourniquet was placed.? General anesthesia was administered.? Right lower extremity was prepped and draped in standard sterile fashion.? A formal time-out procedure was performed confirming the patient's side site of surgery administration of appropriate preoperative antibiotics.? All were in agreement. Exam under anesthesia of the patient's ankle range of motion was undertaken.? He got about 8-10? of dorsiflexion with the knee extended so no Achilles tendon lengthening was deemed necessary. [place] exsanguination was then completed the tourniquet elevated to 250 mmHg.? Attention was turned to the right great toe is severe hallux valgus deformity.? Separate dorsal incision was made just medial to the EHL tendon was taken down through the skin subcutaneous tissue into the capsule and the deformed and arthritic 1st MTP joint was exposed.? The TPS saw was used to resect the 1st metatarsal head and the proximal phalanx base back to bleeding bone additional capsular releases were utilized to help reduce the deformity.? Once this was completed and a separate plantar ulceration debridement and sesamoidectomy as described below were completed, the wound was thoroughly irrigated with 3 L of saline using the cysto tubing.? Drapes and gloves were changed then 2x 062 double-ended K-wires were advanced from the toe through the proximal phalanx and into the metatarsal to hold alignment.? These were drilled under cooling and compression.? Alignment was checked on AP and lateral intraoperative fluoroscopy once this was satisfactory the wires were bent and cut and caps placed.? Next vancomycin powder was placed into the wound and this was closed with 2-0 PDS 4-0 Monocryl and 3-0 nylon suture.? Tourniquet was released before final closure.? Hemostasis was achieved. Plantar ulceration debridement and medial and lateral sesamoidectomy:? Separate plantar medial ulceration was ellipsed sized out of full-thickness.? This went down directly to the metatarsal head.? After this was excised through the dorsal incision the area was planed down including the medial eminence using the TPS saw.? Next the medial and lateral sesamoids were identified and resected to reduce any remaining plantar prominence.? [place] was also used to debride redundant soft tissues and capsule.? This was thoroughly irrigated with cysto tubing and saline.? Next vancomycin powder was placed deep after gloves and instruments were changed.? Deep closure was performed with 2-0 PDS followed by 4-0 Monocryl and 3-0 nylon suture.? Tourniquet was released prior to final closure and the toe pinked up well.? 10 cc of local anesthetic were used.? Hemostasis was achieved.? Dressing was placed with Xeroform gauze, 4 x 4 gauze, Kerlix, ABD pad Robert wrap the patient was removed from the drapes and placed back into his offloading shoe.? He was woken from anesthesia and taken to the recovery room in good condition.? There no immediate complications from this procedure.? All counts were correct. Complications: none Post-operative Condition: stable Disposition: PACU Plan for aftercare: Heel or flatfoot weight-bearing in the Darco forefoot offloading shoe.? Protect the wires.? No weight-bearing without the protective shoe.? Keep dressing clean dry and intact.? Goal is that wires will stay in place 6-8 weeks to help achieve a fibrous union to reduce risk of deformity but will allow easy removal in the office should they become loose early.? Patient will remain on his doxycycline at this point.? If required there may be a change based on his final intraoperative cultures.? He is being followed by infectious [facility].? He was previously on daptomycin.? He will have a small prescription of [place] as a pain medication.
--- NOTE | 2021-09-23 13:01 | SUR.PHASEII ---
Pt was given discharge instructions and states he understands discharge instructions. Pt to be discharged with his and daughter.
== END 2021-09-23 13:01 | disposition home or self-care (01) ==
PROVIDERS: PCP Physician Assistant; Referring Provider Orthopaedic Surgery Foot and Ankle Surgery; Visit Provider Orthopaedic Surgery Foot and Ankle Surgery
PROC: 0QBN0ZZ Excision of Right Metatarsal, Open Approach (ICD-10-PCS; CPT 28292; principal; 2021-09-23 09:15)
DX: M20.11 Hallux valgus (acquired), right foot (principal); M86.9 Osteomyelitis, unspecified; E11.621 Type 2 diabetes mellitus with foot ulcer; E11.22 Type 2 diabetes mellitus with diabetic chronic kidney disease; N18.4 Chronic kidney disease, stage 4 (severe)
CPT/HCPCS: 28292; 82962; 87070; 87075; 87077; 87147; 87176; 87205; J2405; J2704; J3010